=== PATIENT | male | born 1950 | race Caucasian/White ===

== ENCOUNTER → 2018-07-15 | Outpatient (CLI) | payer OTHER ==
[~2018-07-15] MED LIST: ALLO300 PO; ASPI81CH PO; ATEN25 PO; FENO160 PO; HYDR1TAB94 PO; LISI20 PO; Lofibra160 MG PO; METO25ER PO; MULVITMIND PO; OMEG1CAP30 PO; PANT40 PO; Pepcid40 MG PO
[2018-07-15 13:54] LABS: Microalb/Creat Ratio UR, Rand 11.656 mg/g (0.000-30.000); Microalbumin, Random Urine 17.6 mg/L (0.000-20.000)
== END | disposition home or self-care (01) ==
LOC: LAB SHORT 12:42 → LAB 12:42
PROVIDERS: Hospitalist
DX: I10 Essential (primary) hypertension (principal)
CPT/HCPCS: 82043; 82570

== ENCOUNTER → 2020-06-22 | Outpatient (CLI) | payer MEDICARE, OTHER ==
[2020-06-22 15:43] LABS: Microalb/Creat Ratio UR, Rand 10.556 mg/g (0.000-30.000); Microalbumin, Random Urine 13.3 mg/L (0.000-20.000)
== END ==
LOC: LAB 13:07 → LAB SHORT 13:07
PROVIDERS: Hospitalist
DX: I10 Essential (primary) hypertension (principal)
CPT/HCPCS: 82043; 82570

== ENCOUNTER → 2020-09-27 | Outpatient (CLI) | payer MEDICARE, OTHER | LOC: LAB SHORT 08:12 → LAB 08:12 | DX: D48.5 Neoplasm of uncertain behavior of skin (principal); L08.9 Local infection of the skin and subcutaneous tissue, unspecified; Z48.02 Encounter for removal of sutures | CPT/HCPCS: 87070; 87077; 87186; 87205 ==

== ENCOUNTER 2023-04-23 08:26 | Day surgery (SDC) | payer MEDICARE, OTHER ==
[~2023-04-23] VITALS: Ht 177.8 cm; Wt 86.1 kg
[~2023-04-23 08:26] MED LIST changes: +AMOX-CLAV 875-1 EAC1 PO; +HYDCHL25 PO; +PERCOCET 10-321 EA10 PO
[2023-04-23 11:14] VITALS: BP 116/76
== END 2023-04-23 11:05 | disposition home or self-care (01) ==
LOC: ORSCSDS 08:26
PROVIDERS: Surgery
PROC: 0DBK8ZX Excision of Ascending Colon, Via Natural or Artificial Opening Endoscopic, Diagnostic (ICD-10-PCS; principal; 2023-04-23 10:00)
DX: Z12.11 Encounter for screening for malignant neoplasm of colon (principal); D12.2 Benign neoplasm of ascending colon; Z86.010 Personal history of colon polyps; I10 Essential (primary) hypertension; E78.1 Pure hyperglyceridemia; Z79.82 Long term (current) use of aspirin; Z79.899 Other long term (current) drug therapy
CPT/HCPCS: 88305; J0461; J2001; J2405; J2704; J7120; Q9968